=== PATIENT | female | born 1995 | race Caucasian/White ===

== ENCOUNTER 2018-05-10 14:01 | Outpatient (CLI) | payer OTHER | END 2018-05-10 14:02 | disposition home or self-care (01) | LOC: BICULT 14:01 | PROVIDERS: ATTEND Family Medicine | DX: Z34.02 Encounter for supervision of normal first pregnancy, second trimester (principal) | CPT/HCPCS: 76815 ==

== ENCOUNTER 2018-08-22 05:30 | Inpatient (IN) | payer OTHER ==
[2018-08-22] MEDS ORDERED: Oxytocin 10 UNITS/ML VIAL ONE ×3 (08:50→23:41)
[2018-08-22] MEDS ORDERED: NS w/ Oxytocin 10 units 500 ML ONE (08:50)
[2018-08-22 09:05] VITALS: BMI 32.7
[2018-08-22] MEDS: Lactated Ringer's 1,000 ML IV SCH ×3 (09:05→18:04)
[2018-08-22] MEDS ORDERED: NS w/ Oxytocin 10 units 500 ML IV SCH ×2 (09:08)
[2018-08-22] MEDS ORDERED: Lidocaine 1% (PF) 30 ML VIAL SC PRN (09:08)
[2018-08-22] MEDS ORDERED: Diphenoxylate HCl/Atropine Tablet PO PRN (09:08)
[2018-08-22] MEDS ORDERED: Carboprost 250 MCG/ML AMP IM PRN (09:08)
[2018-08-22] MEDS ORDERED: Misoprostol 200 MCG TAB PR PRN (09:08)
[2018-08-22] MEDS ORDERED: Ibuprofen 800 MG TAB PO PRN (09:08)
[2018-08-22] MEDS ORDERED: Methylergonovine 0.2 MG/ML VIAL IM PRN (09:08)
[2018-08-22] MEDS ORDERED: Ondansetron PF 4 MG/2 ML Vial IVP PRN ×2 (09:08→17:10)
[2018-08-22] MEDS ORDERED: NS / Oxytocin 40 units/1000ml 1,000 ML IV PRN (09:08)
[2018-08-22] MEDS ORDERED: HYDROcodone/Acetaminophen 5/325 mg Tablet PO PRN (09:08)
[2018-08-22] MEDS ORDERED: Butorphanol Tartrate 1 MG/ML VIAL SLOW IVP PRN (09:08)
[2018-08-22 09:19] LABS: Hemoglobin 10.5 g/dL (12.0-16.0); Mean Corpuscular HGB CONC 32.9 g/dL (32.0-36.0); Mean Corpuscular Hemoglobin 24.9 pg (27.0-31.0); Mean Corpuscular Volume 75.6 fL (78.0-98.0); Mean Platelet Volume 9.2 fL (7.4-10.4); Platelet Count 220 thou/uL (130-400); RBC Distribution Width 12.8 % (11.5-14.5); White Blood Cell (WBC) Count 10.4 thou/uL (4.8-10.8)
[2018-08-22 09:57] LABS: Syphilis Antibody Nonreactive (Nonreactive); Syphilis Antibody Index 0.03 S/CO (<1.00 Non-Reactive)
[2018-08-22 09:58] LABS: HBSAg Index 0.21 S/CO (0-0.99); Hep B Surf Ag Non-Reactive S/CO (NonReactive)
[2018-08-22] MEDS ORDERED: Metoclopramide HCl 10 MG/2 ML VIAL ONE ×2 (15:58→23:34)
[2018-08-22] MEDS ORDERED: Ondansetron PF 4 MG/2 ML Vial ONE ×3 (15:58→23:34)
[2018-08-22] MEDS ORDERED: Lidocaine 2% MPF 10 ML AMP (For Epidural Use) ONE (15:58)
[2018-08-22] MEDS ORDERED: Fentanyl 4 mcg/Bup 0.1% Cadd 100 ML ONE (16:44)
[2018-08-22] MEDS ORDERED: Eucerin (Mineral Oil/Petrolatum,White) 30 gm Jar TOP PRN (17:10)
[2018-08-22] MEDS ORDERED: Naloxone HCl 0.4 mg/ml Vial IVP PRN ×2 (17:10)
[2018-08-22] MEDS ORDERED: ePHEDrine/0.9% NaCl/PF SYRINGE 50 mg/10 ml SLOW IVP PRN (17:10)
[2018-08-22] MEDS ORDERED: Lactated Ringer's 500 ML IV PRN (17:10)
[2018-08-22] MEDS ORDERED: diphenhydrAMINE 50 MG/ML VIAL IVP PRN (17:10)
[2018-08-22] MEDS ORDERED: Promethazine HCl 25 MG/ML VIAL IM PRN (17:10)
[2018-08-22] MEDS ORDERED: Acetaminophen 325 MG TAB PO PRN (17:10)
[2018-08-22] MEDS ORDERED: Communication Order-Pharmacy FS SCH (17:15)
[2018-08-22] MEDS ORDERED: Fentanyl 4 mcg/Bupivacaine 0.1% Cassette 100 ML EPIDURAL SCH (17:15)
[2018-08-22] MEDS ORDERED: CEFAZOLIN 2 GM/50 ML BAG ONE (22:12)
[2018-08-22] MEDS ORDERED: Bicitra 30 ML UDCUP ONE (22:47)
[2018-08-22] MEDS ORDERED: Morphine PF 1 MG/ML SYR ONE (23:04)
[2018-08-22] MEDS ORDERED: Lidocaine 2% 10 ML INJ ONE (23:20)
[2018-08-22] MEDS ORDERED: Methylergonovine 0.2 MG/ML VIAL ONE (23:25)
[2018-08-22] MEDS ORDERED: Carboprost 250 MCG/ML AMP ONE (23:26)
[2018-08-22] MEDS ORDERED: Fentanyl 100 MCG/2 ML VIAL ONE ×2 (23:28→23:41)
[2018-08-23] MEDS ORDERED: Promethazine HCl 25 MG/ML VIAL IM PRN (00:07)
[2018-08-23] MEDS ORDERED: Promethazine HCl 25 MG SUPP PR PRN (00:07)
[2018-08-23] MEDS ORDERED: diphenhydrAMINE 50 MG/ML VIAL IVP PRN (00:07)
[2018-08-23] MEDS ORDERED: Ondansetron PF 4 MG/2 ML Vial IVP PRN ×2 (00:07→01:02)
[2018-08-23] MEDS ORDERED: Naloxone HCl 0.4 mg/ml Vial IV PRN (00:07)
[2018-08-23] MEDS ORDERED: Hydrocerin (Eucerin) Cream 120 gm Jar TOP PRN (00:07)
[2018-08-23] MEDS ORDERED: Naloxone HCl 0.4 mg/ml Vial IVP PRN ×2 (00:07)
[2018-08-23] MEDS ORDERED: Communication Order-Pharmacy FS SCH (00:15)
[2018-08-23] MEDS ORDERED: Lactated Ringer's 1,000 ML IV SCH (01:02)
[2018-08-23] MEDS ORDERED: Bisacodyl 10 MG SUPP PR PRN (01:02)
[2018-08-23] MEDS ORDERED: diphenhydrAMINE 25 MG CAP PO PRN (01:02)
[2018-08-23] MEDS ORDERED: NS / Oxytocin 40 units/1000ml 1,000 ML IV SCH (01:02)
[2018-08-23] MEDS ORDERED: Lanolin Ointment 7 GM TUBE TOP PRN (01:02)
[2018-08-23] MEDS ORDERED: Ketorolac Tromethamine 30 MG/ML VIAL ONE (01:09)
[2018-08-23] MEDS: Ketorolac Tromethamine 30 MG/ML VIAL IVP PRN ×2 (01:11→08:41)
[2018-08-23 07:09] LABS: Hemoglobin 10.7 g/dL (12.0-16.0); Mean Corpuscular HGB CONC 32.7 g/dL (32.0-36.0); Mean Corpuscular Hemoglobin 24.6 pg (27.0-31.0); Mean Corpuscular Volume 75.1 fL (78.0-98.0); Mean Platelet Volume 9.6 fL (7.4-10.4); Platelet Count 214 thou/uL (130-400); Red Blood Cell (RBC) Count 4.35 mill/uL (4.20-5.40)
[2018-08-23 07:11] LABS: White Blood Cell (WBC) Count 22.1 thou/uL (4.8-10.8)
[2018-08-23] MEDS: Prenatal Vitamin 1 TAB PO SCH (10:04)
[2018-08-23] MEDS: Simethicone Chewable 80 MG TAB PO PRN ×2 (10:05→20:30)
[2018-08-23] MEDS: Docusate Calcium (SURFAK) 240 MG CAP PO SCH ×2 (10:05→20:31)
[2018-08-23] MEDS: HYDROcodone/Acetaminophen 5/325 mg Tablet PO PRN ×3 (10:07→20:29)
[2018-08-23] MEDS: Ferrous Sulfate 325 MG TAB PO SCH (10:12)
[2018-08-23] MEDS ORDERED: Lidocaine 2% MPF 10 ML AMP (For Epidural Use) ONE (10:39)
[2018-08-23] MEDS ORDERED: Bupivacaine PF 0.5% 30 ML VIAL ONE (10:39)
[2018-08-23] MEDS ORDERED: Meperidine HCl/PF 25 MG/ML VIAL IM PRN (12:15)
[2018-08-23] MEDS: Ibuprofen 800 MG TAB PO SCH (16:20)
[2018-08-24] MEDS: Ibuprofen 800 MG TAB PO SCH ×3 (01:14→17:47)
[2018-08-24] MEDS: HYDROcodone/Acetaminophen 5/325 mg Tablet PO PRN ×5 (01:15→19:23)
[2018-08-24] MEDS: Ferrous Sulfate 325 MG TAB PO SCH ×3 (01:21→21:30)
[2018-08-24] MEDS ORDERED: Ibuprofen 800 MG TAB PO SCH (06:00)
[2018-08-24] MEDS: Simethicone Chewable 80 MG TAB PO PRN (06:18)
[2018-08-24] MEDS: Prenatal Vitamin 1 TAB PO SCH (09:37)
[2018-08-24] MEDS: Docusate Calcium (SURFAK) 240 MG CAP PO SCH ×2 (09:37→21:34)
[2018-08-25] MEDS: Ibuprofen 800 MG TAB PO SCH ×3 (01:11→17:03)
[2018-08-25] MEDS: HYDROcodone/Acetaminophen 5/325 mg Tablet PO PRN ×4 (01:11→14:50)
[2018-08-25 08:21] VITALS: BP 103/60; TEMP 97.7
[2018-08-25] MEDS: Docusate Calcium (SURFAK) 240 MG CAP PO SCH (08:35)
[2018-08-25] MEDS: Prenatal Vitamin 1 TAB PO SCH (08:35)
[2018-08-25] MEDS: Ferrous Sulfate 325 MG TAB PO SCH (08:36)
[2018-08-25] MEDS: Simethicone Chewable 80 MG TAB PO PRN (17:03)
--- NOTE | 2018-08-28 13:58 | OP ---
DATE OF PROCEDURE: 08/22/2018 PREOPERATIVE DIAGNOSES: 1. Term . 2. Arrest of dilation. POSTOPERATIVE DIAGNOSES: 1. Term . 2. Arrest of dilation. 3. Uterine atony without hemorrhage. PROCEDURE PERFORMED: Primary low cervical transverse section. WARD AIDE: Ambika. DESCRIPTION OF PROCEDURE: After informed consent was obtained from the patient, she was taken to the operating room where her epidural anesthesia was administered. She was prepped and draped in the usual sterile fashion. A Pfannenstiel incision was created with a #10 scalpel blade and carried down through to the fascia. The fascia was nicked in the midline. The fascial incision was extended transversely with Ballesteros scissors. The superior fascial segments were grasped with Pritesh and elevated and the underlying rectus muscles were dissected free; first bluntly and then sharply. This was repeated with anterior fascial segments. The rectus muscles were divided in the midline with blunt dissection. The peritoneum was entered bluntly. The bladder blade was inserted. The uterus was entered in a low-transverse fashion with a clean #10 scalpel blade. The hysterotomy was extended superolaterally with blunt dissection. Clear amniotic fluid was encountered. vertex was delivered onto the operative field. A loose nuchal cord x1 was reduced. The remainder of the infant delivered uneventfully. Cord was clamped x2 and the vigorous female infant was handed to the staff in attendance. Cord blood was obtained. Placenta was manually extracted. The uterus was exteriorized and debrided off clots and debris. The uterus was repaired with a running locking suture of 0 Vicryl in a single full-thickness layer, followed by second imbricating layer to repair the bladder flaps. The uterus was noted to be somewhat atonic and responded well to oxytocin infusion, Methergine x1, and Hemabate x1. The abdomen was copiously irrigated with saline. The uterus was returned to the abdomen. Hemostasis was again observed. Seprafilm was applied to the repaired uterine incision in the anterior uterine fundus. The peritoneum was cleared with running suture of 3-0 Vicryl. The fascia was repaired with a running suture of 0 PDS. The subcutaneous tissues were copiously irrigated with saline. Three interrupted sutures of 0 Vicryl were placed in the subdermal layer to reapproximate the skin and skin was closed with skin saeed. Sponge and instrument counts were correct x4. She tolerated the procedure well without any acute complications. She was taken to recovery room in stable condition. FINDINGS: Viable female infant, 6 pounds and 6 ounces with Apgars of 8 and 9 at one and five minutes respectively. SPECIMENS: None. COMPLICATIONS: None. ErinBL: [id number]. Job ID: [id number]
== END 2018-08-25 19:10 | disposition home or self-care (01) | DRG 788 ==
LOC: L&D 07:00 → 3SW 08-23 01:33
PROVIDERS: ADMIT Family Medicine; ATTEND Family Medicine
PROC: 10D00Z1 Extraction of Products of Conception, Low, Open Approach (ICD-10-PCS; principal; 2018-08-22)
PROC: 3E033VJ Introduction of Other Hormone into Peripheral Vein, Percutaneous Approach (ICD-10-PCS; 2018-08-22)
PROC: 10H07YZ Insertion of Other Device into Products of Conception, Via Natural or Artificial Opening (ICD-10-PCS; 2018-08-22)
DX: O62.1 Secondary uterine inertia (principal); O75.89 Other specified complications of labor and delivery; Z3A.39 39 weeks gestation of pregnancy; Z37.0 Single live birth
CPT/HCPCS: 36415; 51702; 85027; 86780; 86850; 86900; 86901; 87340; J0595; J1885; J2001; J2210; J2274; J2405; J2590; J2765; J3010; J3490; S0020

== ENCOUNTER 2019-07-19 17:24 | Day surgery (SDC) | payer OTHER ==
[2019-07-19] MEDS ORDERED: hydrALAZINE 20 MG/ML VIAL SLOW IVP PRN (17:55)
[2019-07-19 18:06] VITALS: BP 123/57; TEMP 98.6; BMI 31.6
--- NOTE | 2019-07-19 19:21 | ULT ---
ULTRASOUND BIOPHYSICAL PROFILE: 07/19/19 HISTORY: Nonreassuring heart tones. FINDINGS: There is a single intrauterine gestation in cephalic presentation. Cardiac Doppler demonstrates heart tones with a heart rate of 149 beats per minute. The placenta is incompletely imaged but is located posteriorly without evidence of placenta previa noted on provided images. Cervix is not w ell delineated on this exam due to shadowing from the head. The amniotic fluid index is calcula santosh at 11.2 cm. biophysical profile demonstrates a score of 2 each for tone, breathing, movem ent and amniotic fluid volume. IMPRESSION: 1. Single intrauterine gestation in cephalic presentation with heart tones documented. 2. Amniotic fluid index is 11.2 cm. 3. A total biophysical profile score of 8 out of 8 is obtained. POS: [facility]
== END 2019-07-19 19:30 | disposition home or self-care (01) ==
LOC: L&D/OP 17:24
PROVIDERS: ATTEND Family Medicine
DX: O36.8390 Maternal care for abnormalities of the fetal heart rate or rhythm, unspecified trimester, not applicable or unspecified (principal); O26.93 Pregnancy related conditions, unspecified, third trimester; Z3A.00 Weeks of gestation of pregnancy not specified
CPT/HCPCS: 76819; 99282

== ENCOUNTER 2019-08-10 10:01 | Inpatient (IN) | payer OTHER ==
[2019-08-10] MEDS ORDERED: Promethazine HCl 25 MG/ML VIAL IM PRN ×4 (10:07→15:27)
[2019-08-10] MEDS ORDERED: Ondansetron PF 4 MG/2 ML Vial IVP PRN ×4 (10:07→15:27)
[2019-08-10] MEDS ORDERED: hydrALAZINE 20 MG/ML VIAL SLOW IVP PRN ×2 (10:07→15:27)
[2019-08-10] MEDS ORDERED: CEFAZOLIN 2 GM in Premix Bag 1 BAG IVPB SCH (10:30)
[2019-08-10] MEDS ORDERED: Bicitra 30 ML UDCUP PO SCH (10:30)
[2019-08-10 10:31] VITALS: BMI 31.6
[2019-08-10] MEDS: Lactated Ringer's 1,000 ML IV SCH ×2 (10:45→11:59)
[2019-08-10 11:06] LABS: Hemoglobin 9.9 g/dL (12.0-16.0); Mean Corpuscular HGB CONC 32.8 g/dL (32.0-36.0); Mean Corpuscular Hemoglobin 22.6 pg (27.0-31.0); Mean Corpuscular Volume 68.8 fL (78.0-98.0); Mean Platelet Volume 10.9 fL (7.4-10.4); Platelet Count 210 thou/uL (130-400); RBC Distribution Width 14.8 % (11.5-14.5); Red Blood Cell (RBC) Count 4.37 mill/uL (4.20-5.40); White Blood Cell (WBC) Count 10.1 thou/uL (4.8-10.8)
[2019-08-10] MEDS ORDERED: Ondansetron PF 4 MG/2 ML Vial ONE (11:13)
[2019-08-10] MEDS ORDERED: Dexamethasone 20 MG/5 ML VIAL ONE (11:13)
[2019-08-10] MEDS ORDERED: Ketorolac Tromethamine 30 MG/ML VIAL ONE (11:13)
[2019-08-10] MEDS ORDERED: PHENYLEPHRINE-NS 100 MCG/ML 10 ML SYRINGE ONE (11:13)
[2019-08-10] MEDS ORDERED: Metoclopramide HCl 10 MG/2 ML VIAL ONE (11:13)
[2019-08-10 11:43] LABS: Hep B Surf Ag Non-Reactive S/CO (NonReactive)
[2019-08-10 11:43] LABS: Syphilis Antibody Nonreactive (Nonreactive); Syphilis Antibody Index 0.04 S/CO (<1.00 Non-Reactive)
[2019-08-10] MEDS ORDERED: Oxytocin 10 UNITS/ML VIAL ONE (12:38)
[2019-08-10] MEDS ORDERED: MORPHINE 5 MG/10 ML PF VIAL ONE (12:38)
[2019-08-10] MEDS ORDERED: Ondansetron HCl/PF 4 MG/2 ML Vial IVP PRN (13:18)
[2019-08-10] MEDS ORDERED: Naloxone HCl 0.4 mg/ml Vial IVP PRN ×2 (13:18)
[2019-08-10] MEDS ORDERED: HYDROmorphone 2 MG/ML VIAL SLOW IVP PRN (13:18)
[2019-08-10] MEDS ORDERED: Promethazine HCl 25 MG SUPP PR PRN (13:18)
[2019-08-10] MEDS ORDERED: diphenhydrAMINE 50 MG/ML VIAL IM PRN (13:18)
[2019-08-10] MEDS ORDERED: diphenhydrAMINE 25 MG CAP PO PRN ×2 (13:18→15:27)
[2019-08-10] MEDS ORDERED: Naloxone HCl 0.4 mg/ml Vial IV PRN ×2 (13:18)
[2019-08-10] MEDS ORDERED: Meperidine HCl/PF 25 MG/ML VIAL SLOW IVP PRN (13:18)
[2019-08-10] MEDS ORDERED: L&D-Morphine 4 MG/ML VIAL SLOW IVP PRN (13:18)
[2019-08-10] MEDS ORDERED: fentaNYL Citrate/PF 2,000 MCG in Sodium Chloride 0.9% 60 ML IV PRN (13:18)
[2019-08-10] MEDS ORDERED: diphenhydrAMINE 50 MG/ML VIAL IVP PRN ×2 (13:18)
[2019-08-10] MEDS ORDERED: Zolpidem Tartrate 5 MG TAB PO PRN (13:18)
[2019-08-10] MEDS ORDERED: Communication Order-Pharmacy FS SCH ×2 (13:30)
[2019-08-10] MEDS ORDERED: Bisacodyl 10 MG SUPP PR PRN (15:27)
[2019-08-10] MEDS ORDERED: NS / Oxytocin 40 units/1000ml 1,000 ML IV SCH (15:27)
[2019-08-10] MEDS ORDERED: Adacel (T-DAP) 0.5 ML SYRINGE IM ONE (15:27)
[2019-08-10] MEDS: Lanolin Ointment 7 GM TUBE TOP PRN (18:13)
[2019-08-10] MEDS ORDERED: Acetaminophen 1,000 MG in Premix Bag 1 BAG IVPB PRN (19:00)
--- NOTE | 2019-08-10 19:35 | OP ---
DATE OF PROCEDURE: 08/10/2019 RESIDENT SURGEON: Rosa Draper DO. PREOPERATIVE DIAGNOSES: 1. Prior low-transverse section. 2. Term intrauterine . DISCHARGE DIAGNOSES: 1. Term intrauterine , delivered. 2. Repeat low-transverse section. INDICATIONS: This is a 24-year-old, G2, P1-0-0-1, at 39 weeks gestation with MACEY of 08/17/2019, who presents to Labor and Delivery for scheduled repeat . DESCRIPTION OF PROCEDURE: After risks, benefits, and alternatives were discussed with the patient, she was taken back to the operating room, where spinal anesthesia was initiated. The patient was laid in left lateral tilt. She was prepped and draped in the usual sterile fashion. She received 2 g of Ancef prior to procedure. Of note, the patient did not receive Duramorph in her spinal and is going to get SOFT WATER [employer]CH[employer] pump in the recovery room. A Pfannenstiel incision was made with a scalpel and carried down to the level of the fascia, which was sharply nicked. The cut fascial edges were extended laterally with Ballesteros scissors. Two Pritesh clamps were used to dissect the superior and inferior edges of the cut fascial edges using a scalpel. The peritoneum was entered bluntly in midline and extended manually. The uterus was then entered midline with a #10 scalpel and clear fluid was seen upon entering the uterus. The uterine incision was extended manually. Infant was noted to be vertex and easily delivered by fundal pressure. Apgars were 8 and 9 at 1 and 5 minutes respectively. Cord blood was collected and sent for blood type. Placenta was delivered manually intact. A 3-vessel cord was noted and the placenta was discarded. The uterus was externalized and the endometrium was curetted with a dry lap. A wet lap was placed on the fundal aspect of the uterus and the uterus was closed with #1 Monocryl in a running locking fashion. A [id number] stitch was used at the right lateral aspect of the uterus, where bleeding was still noted. After this, hemostasis was noted. The abdomen was irrigated and suctioned free of clots. Seprafilm was placed on the uterus. The uterus was internalized and the hysterotomy was again noted to be hemostatic. The rectus muscles were inspected and bleeders were cauterized. The peritoneum was closed using 3-0 Vicryl in a running nonlocking fashion. The fascia was then closed with 0 PDS suture in a running nonlocking fashion with two separate stitches. The subcutaneous tissue was brought together with 3-0 Vicryl with interrupted sutures x3. The skin was then closed using saeed and a pressure dressing was applied. All counts were correct. COMPLICATIONS: None. SPECIMENS: Placenta delivered manually intact and discarded. DRAINS: Farley to gravity, draining clear urine. Job ID: [id number] [facility]
[2019-08-10] MEDS ORDERED: Sodium Chloride 0.9% 10 ML ONE (19:44)
[2019-08-10] MEDS: Ketorolac Tromethamine 30 MG/ML VIAL IVP SCH (19:50)
[2019-08-10] MEDS ORDERED: Ketorolac Tromethamine 30 MG/ML VIAL IVP PRN (21:00)
[2019-08-10] MEDS: Ferrous Sulfate 325 MG TAB PO SCH (21:31)
[2019-08-10] MEDS: Docusate Calcium (SURFAK) 240 MG CAP PO SCH (21:31)
[2019-08-11] MEDS ORDERED: HYDROcodone/Acetaminophen 5/325 mg Tablet PO PRN (01:30)
[2019-08-11] MEDS ORDERED: Meperidine HCl/PF 25 MG/ML VIAL IM PRN (01:30)
[2019-08-11] MEDS: Ketorolac Tromethamine 30 MG/ML VIAL IVP SCH ×3 (01:39→08:18)
[2019-08-11 04:55] LABS: Hemoglobin 8.9 g/dL (12.0-16.0); Mean Corpuscular HGB CONC 32.5 g/dL (32.0-36.0); Mean Corpuscular Hemoglobin 22.5 pg (27.0-31.0); Mean Corpuscular Volume 69.3 fL (78.0-98.0); Mean Platelet Volume 10.5 fL (7.4-10.4); Platelet Count 204 thou/uL (130-400); RBC Distribution Width 14.4 % (11.5-14.5); Red Blood Cell (RBC) Count 3.95 mill/uL (4.20-5.40); White Blood Cell (WBC) Count 17.5 thou/uL (4.8-10.8)
[2019-08-11] MEDS: Lanolin Ointment 7 GM TUBE TOP PRN (05:34)
[2019-08-11] MEDS: Prenatal Vitamin 1 TAB PO SCH (08:29)
[2019-08-11] MEDS: Ferrous Sulfate 325 MG TAB PO SCH ×2 (08:29→21:55)
[2019-08-11] MEDS: Docusate Calcium (SURFAK) 240 MG CAP PO SCH ×2 (08:30→21:55)
[2019-08-11] MEDS: HYDROcodone/Acetaminophen 5/325 mg Tablet PO PRN ×4 (09:24→21:56)
[2019-08-11] MEDS: Simethicone Chewable 80 MG TAB PO PRN ×3 (12:03→21:56)
[2019-08-11] MEDS: Ibuprofen 800 MG TAB PO SCH ×2 (13:28→21:55)
[2019-08-12] MEDS: HYDROcodone/Acetaminophen 5/325 mg Tablet PO PRN ×3 (01:58→14:08)
[2019-08-12] MEDS: Simethicone Chewable 80 MG TAB PO PRN ×3 (02:02→10:15)
[2019-08-12] MEDS: Ibuprofen 800 MG TAB PO SCH ×2 (06:13→14:09)
[2019-08-12] MEDS: Docusate Calcium (SURFAK) 240 MG CAP PO SCH (09:21)
[2019-08-12] MEDS: Prenatal Vitamin 1 TAB PO SCH (09:21)
[2019-08-12] MEDS: Ferrous Sulfate 325 MG TAB PO SCH (09:21)
[2019-08-12 11:55] VITALS: BP 103/55; TEMP 97.7
--- NOTE | 2019-08-15 07:06 | PQF ---
Mirella Green ROLAND R MD [id number] CLINICAL DOCUMENTATION CLARIFICATION FORM: POST DISCHARGE Addendum to original discharge summary date: ____ Late entry note date: __ DATE: 08/15/2019 ATTN:CARLA CHAUDHRY MD Please exercise your independent, professional judgment in responding to the clarification form. Clinical indicators are provided on the bottom of this form for your review Please check appropriate box(s): [ ] Acute blood loss anemia [ ] Post-op anemia related to acute blood loss [x ] Anemia: [ ] Aplastic [ ] Nutritional [ ] Drug induced (specify) ___ [ ] Hemolytic [ ] Hereditary [ ] Acquired [ ] Autoimmune [ ] Non-autoimmune [ ] Enzyme disorder [ x ] Other diagnosis ___chronic [ ] Unable to determine In addition, please specify: Present on Admission (POA): [ x ] Yes [ ] No [ ] Unable to determine For continuity of documentation, please document condition throughout progress notes and discharge summary. Thank You. CLINICAL INDICATORS - SIGNS / SYMPTOMS / LABS - EBL: QBL [id number]- Delivery summary, 08/10 - HGB: 9.9L- 08/10, 8.9L-08/11, Laboratory - HCT: 30.1L-08/10, 27.4L-08/11, Laboratory RISK FACTORS - Repeat low-transverse section-OP report, 08/10, CARLA CHAUDHRY MD - 39 weeks at gestation-OP report, 08/10, CARLA CHAUDHRY MD TREATMENTS: - Ferrous sulfate.[id number] Meds, 08/12 (This form is maintained as a part of the permanent medical record) 2014 [employer]. All Rights Reserved Tim Landry [not provided] [not provided] MTDD
== END 2019-08-12 15:25 | disposition home or self-care (01) | DRG 788 ==
LOC: L&D 10:01 → 3SW 16:05
PROVIDERS: ADMIT Family Medicine; ATTEND Family Medicine
PROC: 10D00Z1 Extraction of Products of Conception, Low, Open Approach (ICD-10-PCS; principal; 2019-08-10)
DX: O34.211 Maternal care for low transverse scar from previous cesarean delivery (principal); Z3A.39 39 weeks gestation of pregnancy; Z37.0 Single live birth; O99.02 Anemia complicating childbirth; D64.9 Anemia, unspecified
CPT/HCPCS: 36415; 51702; 85027; 86780; 86850; 86900; 86901; 87340; J0131; J0690; J1100; J1885; J2274; J2405; J2590; J2765; J3010; J3490; Q0163

== ENCOUNTER 2020-07-04 12:18 | Day surgery (SDC) | payer OTHER ==
[2020-07-04 13:12] VITALS: BMI 32.0
--- NOTE | 2020-07-04 15:04 | ULT ---
ULTRASOUND BIOPHYSICAL PROFILE: DATE: 07/04/2020 HISTORY: 25-year-old female with decreased movements FINDINGS: breathin tone: 2 movement: 2 Amniotic fluid volume: 2 IMPRESSION: Normal biophysical profile score of 8 out of 8, excluding the nonstress test.
--- NOTE | 2020-07-04 15:39 | ULT ---
Obstetric sonogram limited Sonographic biophysical profile Umbilical artery duplex exam HISTORY: Decreased movement. Velamentous umbilical cord insertion. FINDINGS: Single intrauterine gestation in cephalic presentation. Heart motion at 145 bpm. Amniotic fluid index 12.4. Good tone, gross movements, and breathing movement was demonstrated at sonography. Grade 0 placenta is anterior. No evidence of previa. Umbilical cord insertion on the placenta is appr oximately 0.9 cm from the lower anterior/inferior margin,. Good color and spectral Doppler flow within the umbilical artery. Pulsatility index 0.64. Resistive i ndex 0.48. S/D ratio 1.9. Measurements are as follows: Biparietal diameter 29 weeks 5 days Head circumference 30 weeks 5 days Abdominal circumference 29 weeks 2 days Femur length 30 weeks 5 days Hadlock 38 percentile. Estimated date of delivery 09/09/2020. Estimated weight 1475 g (3 lbs. 4 oz.). To the right of the uterus, near the expected location of the right adnexa, distended venous structur es are shown to have internal flow. No adjacent fluid. IMPRESSION : Single intrauterine gestation. Estimated gestational age 30 weeks 3 days. Marginal umbilical cord insertion (0.9 cm) upon the inferior aspect of the anterior placenta. Normal umbilical artery duplex evaluation. Sonographic biophysical profile score 8/8. Nonspecific varices in the expected location of the right adnexa. Cause and significance not evident.
--- NOTE | 2020-07-07 12:34 | ULT ---
Obstetric sonogram limited Sonographic biophysical profile Umbilical artery duplex exam HISTORY: Decreased movement. Velamentous umbilical cord insertion. FINDINGS: Single intrauterine gestation in cephalic presentation. Heart motion at 145 bpm. Amniotic fluid index 12.4. Good tone, gross movements, and breathing movement was demonstrated at sonography. Grade 0 placenta is anterior. No evidence of previa. Umbilical cord insertion on the placenta is appr oximately 0.9 cm from the lower anterior/inferior margin,. Good color and spectral Doppler flow within the umbilical artery. Pulsatility index 0.64. Resistive i ndex 0.48. S/D ratio 1.9. Measurements are as follows: Biparietal diameter 29 weeks 5 days Head circumference 30 weeks 5 days Abdominal circumference 29 weeks 2 days Femur length 30 weeks 5 days Hadlock 38 percentile. Estimated date of delivery 09/09/2020. Estimated weight 1475 g (3 lbs. 4 oz.). To the right of the uterus, near the expected location of the right adnexa, distended venous structur es are shown to have internal flow. No adjacent fluid. IMPRESSION : Single intrauterine gestation. Estimated gestational age 30 weeks 3 days. Marginal umbilical cord insertion (0.9 cm) upon the inferior aspect of the anterior placenta. Normal umbilical artery duplex evaluation. Sonographic biophysical profile score 8/8. Nonspecific varices in the expected location of the right adnexa. Cause and significance not evident. Transcribed Date/Time: 07/07/2020 12:33 PM
== END 2020-07-04 14:00 | disposition home health service (06) ==
LOC: L&D/OP 12:18
PROVIDERS: ATTEND Family Medicine
DX: O36.8130 Decreased fetal movements, third trimester, not applicable or unspecified (principal); Z3A.30 30 weeks gestation of pregnancy
CPT/HCPCS: 76815; 76819; 93976

== ENCOUNTER 2020-08-11 09:26 | Day surgery (SDC) | payer OTHER ==
[2020-08-11] MEDS ORDERED: Betamet Acet/Betamet Na Ph 30 MG/5 ML VIAL IM SCH ×2 (09:45→09:46)
[2020-08-11 09:57] VITALS: BP 110/61; TEMP 98.8
[2020-08-11 09:59] VITALS: BMI 32.0
--- NOTE | 2020-08-11 11:11 | ULT ---
[facility] History: growth restriction. Comparison: Pelvic ultrasound July 04, 2020 Findings: Real-time grayscale, color and spectral analysis of the gravid uterus was performed. Single viable intrauterine with average ultrasound age 34 week 1 day with estimated date of delivery September 21, 2020. Estimated weight is 5 lbs. 1 oz., 14th percentile. Biometry: Biparietal diameter: 8.42 cm, 33 weeks 6 day Head circumference: 31.22 cm, 35 weeks 0 day Abdominal circumference: 29.22 cm, 33 week 2 day Femur length: 6.73 cm, 34 week 4 day Amniotic fluid index: 13.6 cm. Although not well imaged, similar location of the marginal insertion o f the vessels adjacent to the inferior placental tip. Impression: 1. Viable intrauterine with estimated weight 5 lbs. 1 oz., 14th percentile. 2. Biophysical profile score of 8/8.
--- NOTE | 2020-08-12 12:14 | ULT ---
[facility] US Biophysical Profile: History: growth restriction. Comparison: Pelvic ultrasound July 04, 2020 Findings: Real-time grayscale, color and spectral analysis of the gravid uterus was performed. Single viable intrauterine with average ultrasound age 34 week 1 day with estimated date of delivery September 21, 2020. Estimated weight is 5 lbs. 1 oz., 14th percentile. Biometry: Biparietal diameter: 8.42 cm, 33 weeks 6 day Head circumference: 31.22 cm, 35 weeks 0 day Abdominal circumference: 29.22 cm, 33 week 2 day Femur length: 6.73 cm, 34 week 4 day Amniotic fluid index: 13.6 cm. Although not well imaged, similar location of the marginal insertion o f the vessels adjacent to the inferior placental tip. Impression: 1. Viable intrauterine with estimated weight 5 lbs. 1 oz., 14th percentile. 2. Biophysical profile score of 8/8. Transcribed Date/Time: 08/12/2020 12:14 PM
== END 2020-08-11 12:16 | disposition home or self-care (01) ==
LOC: L&D/OP 09:26
PROVIDERS: ATTEND Family Medicine
DX: O36.5930 Maternal care for other known or suspected poor fetal growth, third trimester, not applicable or unspecified (principal); Z3A.34 34 weeks gestation of pregnancy
CPT/HCPCS: 76815; 76819; 96372; 99282; J0702

== ENCOUNTER 2020-08-14 09:13 | Day surgery (SDC) | payer OTHER ==
[2020-08-14 09:44] VITALS: BP 115/66; TEMP 98.6; BMI 32.4
--- NOTE | 2020-08-14 10:59 | PRG ---
DATE OF SERVICE: 08/14/2020 PRESENTING COMPLAINT: Thirty-five weeks' gestation for nonstress test and biophysical profile for velamentous insertion. HISTORY OF PRESENT ILLNESS: Ms. Green is a 25-year-old 3, para 2, at 35+, scheduled for repeat the next week, who has a history of velamentous insertion. She is receiving NSTs and BPPs weekly on recommendation of Maternal Medicine because of this. She denies contraction, bleeding, or anything else. Her MACEY is 09/13. She is blood type O positive, antibody negative. Pap negative. Rubella immune. VDRL nonreactive. Hepatitis B, GC, and chlamydia negative. Previous x2. PAST MEDICAL HISTORY: Denies. PAST SURGICAL HISTORY: Denies. ALLERGIES: DENIES. MEDICATIONS: vitamins. SOCIAL HISTORY: Denies tobacco, alcohol, or IV drug abuse. FAMILY HISTORY: Noncontributory. REVIEW OF SYSTEMS: Noncontributory. PHYSICAL EXAMINATION: GENERAL: White female, in no acute distress. VITAL SIGNS: Temperature 98.2, pulse 85, respirations 18, blood pressure 118/72. HEENT: Within normal limits. LUNGS: Clear to auscultation bilaterally. HEART: Regular rate and rhythm. ABDOMEN: Soft and nontender. Fundal height 35. FHTs 140s. Vulva without lesions. Vaginal exam deferred. EXTREMITIES: No clubbing, cyanosis, or edema. Biophysical profile performed by Radiology was interpreted as 8/8 with a normal amniotic fluid index. Nonstress test was carried out for greater than 30 minutes, which revealed positive accelerations, no decelerations, no contractions. Baseline 140s. Category 1 heart rate tracing. IMPRESSION: Reassuring antepartum testing at 35 to 36 weeks' gestation with velamentous insertion. PLAN: ER precautions. Discharge home. Keep scheduled followup and repeat with Dr. Nigel Quach. Job ID: [id number]
[2020-08-14] MEDS ORDERED: hydrALAZINE 20 MG/ML VIAL SLOW IVP PRN (11:09)
--- NOTE | 2020-08-14 13:02 | ULT ---
LIMITED OBSTETRICAL ULTRASOUND FOR BIOPHYSICAL PROFILE: Date: 08/14/2020 INDICATION: Biophysical profile. FINDINGS: There is a single, live intrauterine gestation in vertex presentation. Placenta is anterior in locati on without evidence of previa. The umbilical cord again is seen and is on the marginal aspect of the lower anterior placenta. TRAV is 9.4 cm. The fetus had 2/2 for tone, 2/2 for breathing, 2/ 2 for movement, and 2/2 for amniotic fluid volume, with a cardiac activity of 126 beats/minute. IMPRESSION: Biophysical profile is 8/8. POS: [facility]
== END 2020-08-14 12:35 | disposition home health service (06) ==
LOC: L&D/OP 09:13
PROVIDERS: ATTEND Family Medicine
DX: O43.123 Velamentous insertion of umbilical cord, third trimester (principal); O34.219 Maternal care for unspecified type scar from previous cesarean delivery; Z3A.35 35 weeks gestation of pregnancy
CPT/HCPCS: 59025; 76819; 99282

== ENCOUNTER 2020-08-15 11:50 | Outpatient (CLI) | payer OTHER ==
[2020-08-16 03:17] LABS: SARS-CoV-2 MS2 Positive; SARS-CoV-2 N Gene Negative; SARS-CoV-2 S Gene Negative; SARS-CoV-2 by NAA Not Detected (NotDetected); SARS-CoV-2 orf1ab Negative
== END 2020-08-15 11:51 | disposition home or self-care (01) ==
LOC: LABBT 11:50
PROVIDERS: ATTEND Family Medicine
DX: Z01.812 Encounter for preprocedural laboratory examination (principal); Z20.828 Contact with and (suspected) exposure to other viral communicable diseases
CPT/HCPCS: 87635; U0003

== ENCOUNTER 2020-08-18 07:30 | Inpatient (IN) | payer OTHER ==
[2020-08-18] MEDS ORDERED: hydrALAZINE 20 MG/ML VIAL SLOW IVP PRN ×2 (15:40→20:32)
[2020-08-18] MEDS ORDERED: Promethazine HCl 25 MG/ML VIAL IM PRN ×4 (15:40→20:32)
[2020-08-18] MEDS ORDERED: Ondansetron PF 4 MG/2 ML Vial IVP PRN ×4 (15:40→20:32)
[2020-08-18] MEDS ORDERED: diphenhydrAMINE 50 MG/ML VIAL IVP PRN (15:42)
[2020-08-18] MEDS ORDERED: Ondansetron HCl/PF 4 MG/2 ML Vial IVP PRN (15:42)
[2020-08-18] MEDS ORDERED: HYDROmorphone 2 MG/ML VIAL SLOW IVP PRN (15:42)
[2020-08-18] MEDS ORDERED: Meperidine HCl/PF 25 MG/ML VIAL SLOW IVP PRN (15:42)
[2020-08-18] MEDS ORDERED: Naloxone HCl 0.4 mg/ml Vial IVP PRN ×4 (15:42→18:12)
[2020-08-18] MEDS ORDERED: Naloxone HCl 0.4 mg/ml Vial IV PRN ×2 (15:42→18:12)
[2020-08-18] MEDS ORDERED: L&D-Morphine 4 MG/ML VIAL SLOW IVP PRN (15:42)
[2020-08-18] MEDS ORDERED: Ketorolac Tromethamine 30 MG/ML VIAL IVP PRN (15:42)
[2020-08-18] MEDS ORDERED: Promethazine HCl 25 MG SUPP PR PRN ×2 (15:42→18:12)
[2020-08-18] MEDS ORDERED: Ketorolac Tromethamine 30 MG/ML VIAL IVP SCH (15:45)
[2020-08-18] MEDS ORDERED: Communication Order-Pharmacy FS SCH ×2 (15:45→18:15)
[2020-08-18] MEDS ORDERED: CEFAZOLIN 2 GM in Premix Bag 1 BAG IVPB SCH (15:45)
[2020-08-18] MEDS ORDERED: ePHEDrine 50 MG/ML VIAL ONE (15:51)
[2020-08-18] MEDS ORDERED: Dexamethasone 4 mg/ml Vial ONE (15:51)
[2020-08-18] MEDS ORDERED: Oxytocin 10 UNITS/ML VIAL ONE ×2 (15:51→15:55)
[2020-08-18] MEDS ORDERED: Ketorolac Tromethamine 30 MG/ML VIAL ONE ×2 (15:51→19:58)
[2020-08-18] MEDS ORDERED: Ondansetron PF 4 MG/2 ML Vial ONE (15:51)
[2020-08-18] MEDS ORDERED: Morphine PF 10 MG/10 ML VIAL ONE ×2 (15:51→16:57)
[2020-08-18] MEDS ORDERED: PHENYLEPHRINE-NS 100 MCG/ML 10 ML SYRINGE ONE (15:51)
[2020-08-18 15:54] LABS: Hemoglobin 11.3 g/dL (12.0-16.0); Mean Corpuscular HGB CONC 33.2 g/dL (32.0-36.0); Mean Corpuscular Hemoglobin 24.2 pg (27.0-31.0); Mean Platelet Volume 9.7 fL (7.4-10.4); Platelet Count 184 thou/uL (130-400); RBC Distribution Width 13.4 % (11.5-14.5); Red Blood Cell (RBC) Count 4.67 mill/uL (4.20-5.40); White Blood Cell (WBC) Count 12.7 thou/uL (4.8-10.8)
[2020-08-18 16:23] VITALS: BMI 32.4
[2020-08-18] MEDS ORDERED: Bicitra 30 ML UDCUP ONE (16:30)
[2020-08-18 16:31] LABS: Syphilis Antibody Nonreactive (Nonreactive); Syphilis Antibody Index 0.02 S/CO (<1.00 Non-Reactive)
[2020-08-18 16:41] LABS: HBSAg Index 0.22 S/CO (0-0.99); Hep B Surf Ag Non-Reactive S/CO (NonReactive)
[2020-08-18] MEDS: Lactated Ringer's 1,000 ML IV SCH ×2 (16:42→17:03)
[2020-08-18] MEDS ORDERED: Midazolam HCl 2 mg/2 ml Vial ONE (17:31)
[2020-08-18] MEDS ORDERED: Meperidine HCl/PF 25 MG/ML VIAL IM PRN (20:32)
[2020-08-18] MEDS ORDERED: Bisacodyl 10 MG SUPP PR PRN (20:32)
[2020-08-18] MEDS ORDERED: HYDROcodone/Acetaminophen 5/325 mg Tablet PO PRN ×2 (20:32)
[2020-08-18] MEDS ORDERED: Lanolin Ointment 7 GM TUBE TOP PRN (20:32)
[2020-08-18] MEDS ORDERED: Ferrous Sulfate 325 MG TAB PO SCH (20:45)
[2020-08-18] MEDS ORDERED: Sodium Chloride 0.9% 10 ML ONE (21:02)
[2020-08-18] MEDS: diphenhydrAMINE 50 MG/ML VIAL IVP PRN (21:14)
[2020-08-18] MEDS: Docusate Calcium (SURFAK) 240 MG CAP PO SCH (22:38)
[2020-08-19] MEDS ORDERED: Ketorolac Tromethamine 30 MG/ML VIAL IVP SCH (00:15)
[2020-08-19] MEDS: Ketorolac Tromethamine 30 MG/ML VIAL IVP SCH ×4 (01:01→16:54)
[2020-08-19] MEDS: diphenhydrAMINE 50 MG/ML VIAL IVP PRN (01:02)
[2020-08-19 06:59] LABS: Hemoglobin 9.7 g/dL (12.0-16.0); Mean Corpuscular HGB CONC 32.9 g/dL (32.0-36.0); Mean Corpuscular Hemoglobin 23.7 pg (27.0-31.0); Platelet Count 179 thou/uL (130-400); RBC Distribution Width 13.2 % (11.5-14.5); Red Blood Cell (RBC) Count 4.08 mill/uL (4.20-5.40)
--- NOTE | 2020-08-19 07:38 | OP ---
DATE OF PROCEDURE: 08/18/2020 PRIMARY SURGEON: Nigel Quach MD ASSISTING RESIDENT: Karen Jensen MD PROCEDURE PERFORMED: Repeat low-transverse section with risk reducing salpingectomy bilaterally. PREOPERATIVE DIAGNOSES: 1. intrauterine gestational . 2. growth restriction. 3. Velamentous cord insertion. 4. Prior section x2. 5. Family history of ovarian and breast cancer POSTOPERATIVE DIAGNOSES: 1. intrauterine , delivered. 2. growth restriction. 3. Velamentous cord insertion. 4. Prior section x2. 5. Family history of ovarian and breast cancer ANESTHESIA: Spinal. QUANTITATIVE BLOOD LOSS: 365 mL. SPECIMENS: Placenta with velamentous cord insertion noted, sent for pathology. Cord blood sent for cord type. FINDINGS: Viable male with Apgars of 8 and 9, at one and five minutes of life respectively. DRAINS: Farley to gravity draining clear urine. INDICATIONS FOR PROCEDURE: A 25-year-old G3, P2-0-0-2 at 36 weeks gestation, presents for scheduled repeat low-transverse section with risk reducing salpingectomy due to family history of ovarian and breast cancer. section indicated for growth restriction and velamentous cord insertion. DESCRIPTION OF PROCEDURE: After explanation of risks, benefits, and alternatives, the patient gave her informed consent. She was taken to the operating room, where spinal anesthesia was initiated. She was placed in a supine position with a left tilt. Preoperative antibiotics included cefazolin 2 g IV. She was prepped and draped in the usual sterile fashion. A scalpel was used to make a Pfannenstiel incision just above her previous scar. This was carried down to the level of fascia, which was sharply nicked. Ballesteros scissors were used to extend the fascia bilaterally. Pritesh clamps were then used to elevate the fascia superiorly and inferiorly. The rectus muscles were bluntly and sharply dissected free from the fascia. The rectus muscles were divided digitally and retracted manually. The peritoneum was entered bluntly. The peritoneum was retracted manually. Bladder blade was inserted. A scalpel was used to make a low transverse uterine incision. Allis clamps were used to achieve amniotomy. Clear fluid was seen. The was noted to be in the vertex presentation. The was delivered easily with fundal pressure. Nuchal cord x1. The was stimulated, dried, and its mouth and nares were bulb suctioned. Cord was clamped after 30 seconds of delayed cord clamping. was then taken to the team at the [facility]. Cord blood was collected. The placenta was delivered spontaneously with cord traction and fundal pressure and sent for pathology. The uterus was exteriorized. The endometrium was curetted with dry lap x3. The hysterotomy was closed using 1 Monocryl in a running locking fashion. Hemostasis was noted. The patient had previously signed an informed consent for bilateral risk- reducing salpingectomy. The tubes were elevated with [place] clamps. The left mesosalpinx was divided using cautery. The mesosalpinx was then tied off with 0 chromic sutures. The left fallopian tube was then excised using Metzenbaum scissors. The left fallopian tube was then given to the awaiting nurse to send for pathology. This procedure was repeated on the right fallopian tube and also sent for pathology. Hemostasis was noted over the pedicles, where the chromic suture had been tied. Hemostasis was again noted over the hysterotomy. Seprafilm was applied over the hysterotomy and the anterior portion of the uterus. The uterus was returned to the abdomen. Peritoneum was closed using 3-0 plain suture in a running nonlocking fashion. The fascia was closed using 1 PDS in a running nonlocking fashion. The subcutaneous space was irrigated with sterile saline. The subcutaneous space was closed with interrupted sutures of 3-0 plain gut. The skin was closed with saeed. Pressure dressing was placed. The patient tolerated the procedure well. All counts were correct. The patient was taken to the recovery room in stable condition. Job ID: [id number] [facility]
[2020-08-19] MEDS ORDERED: Adacel (T-DAP) 0.5 ML SYRINGE IM ONE (09:00)
[2020-08-19] MEDS: Docusate Calcium (SURFAK) 240 MG CAP PO SCH ×2 (09:21→20:09)
[2020-08-19] MEDS: Ferrous Sulfate 325 MG TAB PO SCH ×2 (09:21→17:56)
[2020-08-19] MEDS: Prenatal Vitamin 1 TAB PO SCH (09:21)
[2020-08-19] MEDS: HYDROcodone/Acetaminophen 5/325 mg Tablet PO PRN ×3 (12:40→23:53)
[2020-08-19] MEDS: diphenhydrAMINE 25 MG CAP PO PRN ×2 (14:33→20:09)
[2020-08-19] MEDS: Ibuprofen 800 MG TAB PO SCH (20:09)
[2020-08-20] MEDS: diphenhydrAMINE 25 MG CAP PO PRN ×4 (04:40→20:43)
[2020-08-20] MEDS: Ibuprofen 800 MG TAB PO SCH ×3 (04:40→20:43)
[2020-08-20] MEDS: HYDROcodone/Acetaminophen 5/325 mg Tablet PO PRN ×3 (08:22→20:44)
[2020-08-20] MEDS: Ferrous Sulfate 325 MG TAB PO SCH ×2 (08:24→18:53)
[2020-08-20] MEDS: Docusate Calcium (SURFAK) 240 MG CAP PO SCH ×2 (08:24→20:43)
[2020-08-20] MEDS: Prenatal Vitamin 1 TAB PO SCH (08:24)
[2020-08-20] MEDS: Simethicone Chewable 80 MG TAB PO PRN ×2 (15:45→20:43)
[2020-08-21] MEDS: diphenhydrAMINE 25 MG CAP PO PRN ×3 (01:04→12:50)
[2020-08-21] MEDS: Simethicone Chewable 80 MG TAB PO PRN ×2 (01:04→12:52)
[2020-08-21] MEDS: HYDROcodone/Acetaminophen 5/325 mg Tablet PO PRN ×3 (01:06→12:50)
[2020-08-21] MEDS: Ibuprofen 800 MG TAB PO SCH (05:48)
[2020-08-21] MEDS: Prenatal Vitamin 1 TAB PO SCH (08:24)
[2020-08-21] MEDS: Ferrous Sulfate 325 MG TAB PO SCH (08:25)
[2020-08-21] MEDS: Docusate Calcium (SURFAK) 240 MG CAP PO SCH (08:25)
[2020-08-21 08:37] VITALS: BP 104/72; TEMP 98.3
--- NOTE | 2020-08-23 03:10 | PQF ---
CLINICAL DOCUMENTATION CLARIFICATION FORM: Dear : Misha Quach Date / Time: 08/23/2020 Please exercise your independent, professional judgment in responding to the clarification form. Clinical indicators are provided on the bottom of this form for your review Please check appropriate box(es): [ ] Associated Diagnosis: Acute blood loss anemia [ ] Abnormal laboratory findings not clinically significant [ ] Other diagnosis [ ] Unable to determine In addition, please specify: Present on Admission (POA): [ ] Yes [ ] No [ ] Unable to determine Physician Signature: Date/Time: For continuity of documentation, please document condition throughout progress notes and discharge summary. Thank You. To be completed by CDI/Coding staff for physician review: Present Clinical Indicators - Signs / Symptoms / Labs Results and Location in Medical Record [X] RBC 4.67, Hgb 11.3, Hct 34.1 Laboratory 08/18 [X] RBC 4.08, Hgb 9.7, Hct 29.4 Laboratory 08/19 [X] BP 106/63, Pulse 93, Resp 18, Temp 97.5 Vital signs 08/18 [X] Quantitative blood loss 365 ml Operative report 08/18 Dr Jensen Present Risk Factors Results and Location in Medical Record [X] IUP Operative report 08/18 Dr Jensen [X] Velametous cord insertion Operative report 08/18 Dr Jensen [X] Prior CS Operative report 08/18 Dr Jensen [X] s/p Low-transerse section with Bilateral salpingectomy Operative report 08/18 Dr Jensen Present Treatments Results and Location in Medical Record [X] Series of hgb and hct labs Laboratory 08/18 [X] Ferrous Sulfate 325 mg oral DEC 04 [X] IV Lactated Ringers 1L DEC 04 CDS/Window Tinter Signature: Lianet Harrison Tiff Phone #: [phone] Date/Time: 08/23/2020 This is a permanent part of the Medical Record [facility]
== END 2020-08-21 13:50 | disposition home or self-care (01) | DRG 785 ==
LOC: L&D 14:33 → 3SW 20:42
PROVIDERS: ADMIT Family Medicine; ATTEND Family Medicine
PROC: 10D00Z1 Extraction of Products of Conception, Low, Open Approach (ICD-10-PCS; principal; 2020-08-18)
PROC: 0UB70ZZ Excision of Bilateral Fallopian Tubes, Open Approach (ICD-10-PCS; 2020-08-18)
DX: O43.123 Velamentous insertion of umbilical cord, third trimester (principal); O34.211 Maternal care for low transverse scar from previous cesarean delivery; Z20.828 Contact with and (suspected) exposure to other viral communicable diseases; O36.5930 Maternal care for other known or suspected poor fetal growth, third trimester, not applicable or unspecified; Z3A.36 36 weeks gestation of pregnancy; Z37.0 Single live birth; Z80.3 Family history of malignant neoplasm of breast; Z80.41 Family history of malignant neoplasm of ovary; Z28.21 Immunization not carried out because of patient refusal; Z40.03 Encounter for prophylactic removal of fallopian tube(s)
CPT/HCPCS: 36415; 51702; 85027; 86780; 86850; 86900; 86901; 87340; 88302; 88307; J0690; J1100; J1200; J1885; J2250; J2270; J2405; J3490; Q0163